=== PATIENT | male | born 1960 | race African-American/Black ===

== ENCOUNTER 2017-11-17 21:19 | Emergency (ER) | payer OTHER ==
[2017-11-18] MEDS ORDERED: IBUPROFEN 800 MG TABLET PO ONE (00:28)
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
[2017-11-18 02:05] VITALS: BP 136/78
== END 2017-11-18 02:04 | disposition home or self-care (01) ==
LOC: ER 21:19
DX: M25.512 Pain in left shoulder (principal); V49.40XA Driver injured in collision with unspecified motor vehicles in traffic accident, initial encounter
CPT/HCPCS: 99283